=== PATIENT | male | born 1960 | race Caucasian/White ===

== ENCOUNTER 2020-05-03 19:58 | Inpatient (IN) ==
[2020-05-03 21:33] LABS: Hemoglobin 11.6 g/dL (12.9-16.9)
[2020-05-03 21:35] LABS: Basophils # 0.1 K/mcL (0.0-0.2); Basophils % 0.6 %; Eosinophils # 0.1 K/mcL (0.0-0.6); Eosinophils % 0.9 %; Hematocrit 40.8 % (37.5-50.1); Immature Granulocytes % 0.2 % (0-4); Immature Platelets 4.4 % (1.1-6.1); Lymphocytes % 22.3 %; Mean Corpuscular HGB Conc 28.4 g/dL (31.6-35.5); Mean Corpuscular Hemoglobin 22.8 pg (28.0-33.3); Mean Corpuscular Volume 80.3 fL (83.0-100.0); Mean Platelet Volume 11.2 fL (9.4-12.4); Monocytes # 1.2 K/mcL (0.0-1.3); Monocytes % 13.1 %; Neutrophils # 5.7 K/mcL (1.6-8.9); Platelet Count 120 K/mcL (140-400); Red Blood Count 5.08 M/mcL (4.19-5.50); Red Cell Distribution Width 21.4 % (11.5-14.5); Segmented Neutrophils % 62.9 %
[2020-05-03 21:39] LABS: Bacteria,Urine Few per hpf (None-Few); Bilirubin,Urine Negative (Negative); Blood,Urine Negative (Negative); Clarity,Urine Ex.Turbid (Clear); Color,Urine Dark-Yellow (Yellow); Glucose,Urine (UA) Normal (Normal); Hyaline Casts,Urine Few per lpf (None Seen); Ketones,Urine 10 mg/dL (Negative); Leukocyte Esterase,Urine Negative (Negative); Mucus,Urine Moderate per lpf (None-Few); Nitrite,Urine Negative (Negative); Protein,Urine 50 mg/dL (Neg-Trace); Specific Gravity,Urine > 1.030 (1.010-1.025)
[2020-05-03 21:41] LABS: INR 1.6; Prothrombin Time 17.8 Seconds (9.4-12.1)
[2020-05-03 21:50] LABS: Alanine Aminotransferase 26 Units/L (7-52); Albumin 2.5 g/dL (3.5-5.7); Albumin/Globulin Ratio 0.6 (1.1-2.2); Alkaline Phosphatase 218 Units/L (34-104); Aspartate Amino Transferase 73 Units/L (13-39); BUN/Creatinine Ratio 20 (6-26); Bilirubin,Direct 0.8 mg/dL (0.0-0.2); Bilirubin,Total 1.8 mg/dL (0.3-1.0); Blood Urea Nitrogen 13 mg/dL (6-20); Calcium 8.3 mg/dL (8.6-10.3); Carbon Dioxide 27 mEq/L (23-29); Chloride 99 mEq/L (98-107); Globulin 4.4 g/dL (2.4-3.5); Glucose 88 mg/dL (70-105); Osmolality,Calculated 274 (280-300); Potassium 4.3 mEq/L (3.5-5.1); Sodium 132 mEq/L (136-145); Total Protein 6.9 g/dL (6.4-8.9); eGFR For African Americans > 60 (> 60); eGFR For Non-African Americans > 60 (> 60)
[2020-05-03 21:56] LABS: Anisocytosis 1+ (Not Present)
[2020-05-03 21:57] LABS: Hypochromasia Present (Not Present); Platelet Estimate Decreased (Normal)
[2020-05-03] MEDS ORDERED: cefTRIAXone 1,000 MG in Water for inj. (sterile) 10 ML IVP ONE (22:11)
[2020-05-03] MEDS ORDERED: Naloxone 0.4 MG/ML INJ IVP PRN (22:52)
[2020-05-03] MEDS ORDERED: Ondansetron 4 MG/2 ML VIAL IVP PRN (22:52)
[2020-05-03] MEDS ORDERED: *HR* Dextrose 50 % in Water (Vial) 50 ML VIAL IVP PRN (23:33)
[2020-05-03] MEDS ORDERED: Dextrose Gel 15 GM/37.5 ML TUBE PO PRN ×2 (23:33)
[2020-05-03] MEDS ORDERED: D5% in Water 1,000 ML IVC PRN (23:33)
[2020-05-04] MEDS ORDERED: Morphine Sulfate Immed Rel 15 MG TABLET PO PRN (01:53)
[2020-05-04] MEDS ORDERED: methocarbamoL 750 MG TABLET PO ONE ×2 (03:02→05:15)
[2020-05-04] MEDS: Ipratropium/Albuterol Neb 3 ML IH SCH ×3 (03:49→16:14)
[2020-05-04 05:51] LABS: Basophils % 0.5 %; Eosinophils % 1.3 %; Hematocrit 38.4 % (37.5-50.1)
[2020-05-04 05:53] LABS: Basophils # 0.1 K/mcL (0.0-0.2); Eosinophils # 0.1 K/mcL (0.0-0.6); Immature Granulocytes % 0.4 % (0-4); Immature Platelets 3.9 % (1.1-6.1); Lymphocytes # 2.3 K/mcL (0.6-4.6); Lymphocytes % 22.8 %; Mean Corpuscular HGB Conc 28.6 g/dL (31.6-35.5); Mean Corpuscular Hemoglobin 22.8 pg (28.0-33.3); Mean Corpuscular Volume 79.7 fL (83.0-100.0); Mean Platelet Volume 10.7 fL (9.4-12.4); Monocytes # 1.3 K/mcL (0.0-1.3); Monocytes % 13.2 %; Neutrophils # 6.1 K/mcL (1.6-8.9); Platelet Count 121 K/mcL (140-400); Red Blood Count 4.82 M/mcL (4.19-5.50); Red Cell Distribution Width 21.3 % (11.5-14.5); Segmented Neutrophils % 61.8 %; White Blood Count 9.9 K/mcL (4.3-11.1)
[2020-05-04 06:32] LABS: Anisocytosis 1+ (Not Present); Hypochromasia Present (Not Present); Platelet Estimate Slight Decrease (Normal)
[2020-05-04 06:34] LABS: Alanine Aminotransferase 23 Units/L (7-52); Albumin 2.4 g/dL (3.5-5.7); Albumin/Globulin Ratio 0.6 (1.1-2.2); Alkaline Phosphatase 195 Units/L (34-104); Aspartate Amino Transferase 67 Units/L (13-39); BUN/Creatinine Ratio 22 (6-26); Bilirubin,Total 1.4 mg/dL (0.3-1.0); Blood Urea Nitrogen 14 mg/dL (6-20); Calcium 8.4 mg/dL (8.6-10.3); Carbon Dioxide 26 mEq/L (23-29); Chloride 100 mEq/L (98-107); Globulin 4.1 g/dL (2.4-3.5); Glucose 99 mg/dL (70-105); Osmolality,Calculated 273 (280-300); Phosphorous 2.7 mg/dL (2.7-4.5); Potassium 4.2 mEq/L (3.5-5.1); Sodium 131 mEq/L (136-145); Total Protein 6.5 g/dL (6.4-8.9); eGFR For African Americans > 60 (> 60); eGFR For Non-African Americans > 60 (> 60)
[2020-05-04] MEDS: Insulin LISPRO 300 UNITS/3 ML VIAL SQ SCH ×3 (08:50→17:52)
[2020-05-04] MEDS: Loratadine 10 MG TABLET PO SCH ×3 (08:52→22:18)
[2020-05-04] MEDS: cefTRIAXone 1,000 MG in Water for inj. (sterile) 10 ML IVP SCH (08:53)
[2020-05-04] MEDS: Albumin 25% 25gram/100mL 25 GM/100 ML IV.SOLN IVPB SCH ×4 (09:47→23:37)
[2020-05-04] MEDS ORDERED: Ipratropium/Albuterol Neb 3 ML IH PRN (10:48)
[2020-05-04 11:12] LABS: Source of Body Fluid Peritoneal
[2020-05-04 11:55] LABS: Estimated Average Glucose 117 mg/dl; Hemoglobin A1C 5.7 %
[2020-05-04] MEDS: Folic Acid 1 MG TABLET PO SCH (12:23)
[2020-05-04 14:48] LABS: Appearance of Body Fluid Clear (Clear); Volume of Body Fluid 60 mL
[2020-05-04 15:52] LABS: % Iron Saturation 8 % (20-55); Iron 21 mcg/dL (65-175); Transferrin 182 mg/dL (203-362)
[2020-05-04 16:07] LABS: Ferritin 27 ng/mL (20-250)
[2020-05-04 16:25] LABS: Folate > 22.3 ng/mL (3.0-16.0); Vitamin B12 > 1500 pg/mL (250-1100)
[2020-05-04] MEDS: Gabapentin 400 MG CAPSULE PO SCH ×2 (16:27→22:10)
[2020-05-04] MEDS ORDERED: Spironolactone 25 MG TABLET PO SCH (21:00)
[2020-05-04] MEDS: Budesonide/Formoterol 160/4.5 1 PUFF INH IH SCH (21:23)
[2020-05-04] MEDS: *HR* Rivaroxaban 15 MG TABLET PO SCH (22:10)
[2020-05-04] MEDS: Bumetanide 1 MG TABLET PO SCH (22:11)
[2020-05-04] MEDS: Fluticasone Propionate Nasal 50 MCG/SPRAY BOTTLE NS SCH (22:18)
[2020-05-05] MEDS: Morphine Sulfate Immed Rel 15 MG TABLET PO PRN ×2 (00:48→23:06)
[2020-05-05 02:40] LABS: Eosinophils % 1.6 %; Lymphocytes % 23.9 %
[2020-05-05 02:42] LABS: Basophils % 0.4 %; Eosinophils # 0.1 K/mcL (0.0-0.6); Hematocrit 32.1 % (37.5-50.1); Hemoglobin 9.1 g/dL (12.9-16.9); Immature Granulocytes % 0.3 % (0-4); Immature Platelets 3.4 % (1.1-6.1); Lymphocytes # 1.8 K/mcL (0.6-4.6); Mean Corpuscular HGB Conc 28.3 g/dL (31.6-35.5); Mean Corpuscular Hemoglobin 22.6 pg (28.0-33.3); Mean Corpuscular Volume 79.7 fL (83.0-100.0); Mean Platelet Volume 10.1 fL (9.4-12.4); Monocytes # 1.1 K/mcL (0.0-1.3); Monocytes % 13.7 %; Neutrophils # 4.6 K/mcL (1.6-8.9); Red Blood Count 4.03 M/mcL (4.19-5.50); Segmented Neutrophils % 60.1 %; White Blood Count 7.7 K/mcL (4.3-11.1)
[2020-05-05 02:46] LABS: Platelet Count 94 K/mcL (140-400)
[2020-05-05 02:50] LABS: Anisocytosis 1+ (Not Present); Hypochromasia Present (Not Present); Platelet Estimate Decreased (Normal)
[2020-05-05 02:54] LABS: BUN/Creatinine Ratio 21 (6-26); Blood Urea Nitrogen 13 mg/dL (6-20); Calcium 7.9 mg/dL (8.6-10.3); Carbon Dioxide 27 mEq/L (23-29); Chloride 98 mEq/L (98-107); Glucose 108 mg/dL (70-105); Magnesium 1.9 mg/dL (1.6-2.6); Osmolality,Calculated 269 (280-300); Phosphorous 2.1 mg/dL (2.7-4.5); Sodium 129 mEq/L (136-145); eGFR For African Americans > 60 (> 60); eGFR For Non-African Americans > 60 (> 60)
[2020-05-05] MEDS: Budesonide/Formoterol 160/4.5 1 PUFF INH IH SCH ×2 (07:29→22:36)
[2020-05-05] MEDS: Insulin LISPRO 300 UNITS/3 ML VIAL SQ SCH ×3 (08:22→15:32)
[2020-05-05] MEDS: cefTRIAXone 1,000 MG in Water for inj. (sterile) 10 ML IVP SCH (09:03)
[2020-05-05] MEDS: Folic Acid 1 MG TABLET PO SCH (09:03)
[2020-05-05] MEDS: Spironolactone 25 MG TABLET PO SCH (09:03)
[2020-05-05] MEDS: *HR* Rivaroxaban 15 MG TABLET PO SCH ×2 (09:03→19:57)
[2020-05-05] MEDS: Thiamine (B-1) 100 MG TABLET PO SCH (09:03)
[2020-05-05] MEDS: Bumetanide 1 MG TABLET PO SCH ×2 (09:04→19:57)
[2020-05-05] MEDS: Gabapentin 400 MG CAPSULE PO SCH ×3 (09:06→19:57)
[2020-05-05] MEDS: Albumin 25% 25gram/100mL 25 GM/100 ML IV.SOLN IVPB SCH ×4 (09:06→23:03)
[2020-05-05] MEDS: Fluticasone Propionate Nasal 50 MCG/SPRAY BOTTLE NS SCH ×2 (09:13→19:57)
[2020-05-05] MEDS ORDERED: Iron Sucrose Complex 400 MG in 0.9 % Sodium Chloride 250 ML IVPB ONE (12:20)
[2020-05-05] MEDS: Loratadine 10 MG TABLET PO SCH (19:57)
[2020-05-06 01:51] LABS: Basophils % 0.5 %; Eosinophils # 0.2 K/mcL (0.0-0.6); Eosinophils % 2.2 %; Hematocrit 33.7 % (37.5-50.1); Hemoglobin 9.8 g/dL (12.9-16.9); Immature Granulocytes % 0.3 % (0-4); Immature Platelets 5.2 % (1.1-6.1); Lymphocytes # 1.6 K/mcL (0.6-4.6); Mean Corpuscular HGB Conc 29.1 g/dL (31.6-35.5); Mean Corpuscular Hemoglobin 23.6 pg (28.0-33.3); Mean Corpuscular Volume 81.2 fL (83.0-100.0); Mean Platelet Volume 10.9 fL (9.4-12.4); Monocytes # 0.9 K/mcL (0.0-1.3); Neutrophils # 4.9 K/mcL (1.6-8.9); Platelet Count 103 K/mcL (140-400); Red Blood Count 4.15 M/mcL (4.19-5.50); Red Cell Distribution Width 20.7 % (11.5-14.5); White Blood Count 7.7 K/mcL (4.3-11.1)
[2020-05-06 02:05] LABS: BUN/Creatinine Ratio 22 (6-26); Blood Urea Nitrogen 14 mg/dL (6-20); Calcium 8.6 mg/dL (8.6-10.3); Carbon Dioxide 25 mEq/L (23-29); Chloride 96 mEq/L (98-107); Glucose 107 mg/dL (70-105); Magnesium 1.8 mg/dL (1.6-2.6); Osmolality,Calculated 267 (280-300); Phosphorous 1.8 mg/dL (2.7-4.5); Potassium 3.9 mEq/L (3.5-5.1); Sodium 128 mEq/L (136-145); eGFR For African Americans > 60 (> 60); eGFR For Non-African Americans > 60 (> 60)
[2020-05-06] MEDS: *HR* Rivaroxaban 15 MG TABLET PO SCH (07:49)
[2020-05-06] MEDS: Gabapentin 400 MG CAPSULE PO SCH ×3 (07:49→20:46)
[2020-05-06] MEDS: Thiamine (B-1) 100 MG TABLET PO SCH (07:49)
[2020-05-06] MEDS: Insulin LISPRO 300 UNITS/3 ML VIAL SQ SCH ×3 (07:49→16:45)
[2020-05-06] MEDS: Folic Acid 1 MG TABLET PO SCH (07:49)
[2020-05-06] MEDS: cefTRIAXone 1,000 MG in Water for inj. (sterile) 10 ML IVP SCH (07:51)
[2020-05-06] MEDS: Albumin 25% 25gram/100mL 25 GM/100 ML IV.SOLN IVPB SCH ×4 (07:52→22:24)
[2020-05-06] MEDS: Budesonide/Formoterol 160/4.5 1 PUFF INH IH SCH ×2 (07:57→20:14)
[2020-05-06] MEDS: Fluticasone Propionate Nasal 50 MCG/SPRAY BOTTLE NS SCH ×2 (08:01→20:46)
[2020-05-06] MEDS ORDERED: metOLazone 2.5 MG TABLET PO SCH (09:00)
[2020-05-06] MEDS: Spironolactone 25 MG TABLET PO SCH (09:41)
[2020-05-06] MEDS: Bumetanide 1 MG TABLET PO SCH (09:41)
[2020-05-06] MEDS ORDERED: Fosfomycin Tromethamine 3 GM Packet PO ONE (10:45)
[2020-05-06] MEDS ORDERED: Vancomycin 1,500 MG/265 ML IV.SOLN IVPB SCH (11:00)
[2020-05-06 13:22] LABS: Fluid Source for Albumin PERITONEAL FL
[2020-05-06] MEDS: Apixaban 5 MG TABLET PO SCH (20:46)
[2020-05-06] MEDS: Loratadine 10 MG TABLET PO SCH (20:46)
[2020-05-06] MEDS: Sennosides/Docusate Sodium TABLET PO SCH (21:27)
[2020-05-07 08:04] VITALS: BP 100/63
[2020-05-07] MEDS: Insulin LISPRO 300 UNITS/3 ML VIAL SQ SCH ×2 (08:10→11:34)
[2020-05-07] MEDS: Gabapentin 400 MG CAPSULE PO SCH (08:11)
[2020-05-07] MEDS: Thiamine (B-1) 100 MG TABLET PO SCH (08:12)
[2020-05-07] MEDS: Apixaban 5 MG TABLET PO SCH (08:13)
[2020-05-07] MEDS: Folic Acid 1 MG TABLET PO SCH (08:13)
[2020-05-07] MEDS: Sennosides/Docusate Sodium TABLET PO SCH (08:13)
[2020-05-07] MEDS: Fluticasone Propionate Nasal 50 MCG/SPRAY BOTTLE NS SCH (08:13)
[2020-05-07] MEDS: Budesonide/Formoterol 160/4.5 1 PUFF INH IH SCH (09:32)
[2020-05-07 12:13] LABS: Hematocrit 30.8 % (37.5-50.1); Mean Platelet Volume 10.5 fL (9.4-12.4)
[2020-05-07 12:15] LABS: Basophils % 0.3 %; Eosinophils # 0.1 K/mcL (0.0-0.6); Eosinophils % 1.7 %; Hemoglobin 8.8 g/dL (12.9-16.9); Immature Granulocytes % 0.2 % (0-4); Immature Platelets 6.7 % (1.1-6.1); Lymphocytes # 1.3 K/mcL (0.6-4.6); Lymphocytes % 21.3 %; Mean Corpuscular HGB Conc 28.6 g/dL (31.6-35.5); Mean Corpuscular Hemoglobin 22.8 pg (28.0-33.3); Mean Corpuscular Volume 79.8 fL (83.0-100.0); Monocytes # 0.7 K/mcL (0.0-1.3); Monocytes % 10.9 %; Platelet Count 101 K/mcL (140-400); Red Blood Count 3.86 M/mcL (4.19-5.50); Red Cell Distribution Width 20.8 % (11.5-14.5); Segmented Neutrophils % 65.6 %; White Blood Count 6.1 K/mcL (4.3-11.1)
[2020-05-07 12:19] LABS: BUN/Creatinine Ratio 18 (6-26); Blood Urea Nitrogen 11 mg/dL (6-20); Carbon Dioxide 31 mEq/L (23-29); Chloride 96 mEq/L (98-107); Glucose 161 mg/dL (70-105); Magnesium 1.9 mg/dL (1.6-2.6); Osmolality,Calculated 281 (280-300); Phosphorous 1.4 mg/dL (2.7-4.5); Potassium 3.5 mEq/L (3.5-5.1); Sodium 134 mEq/L (136-145); Uric Acid 4.6 mg/dL (2.3-7.6); eGFR For African Americans > 60 (> 60); eGFR For Non-African Americans > 60 (> 60)
[2020-05-07 12:34] LABS: Anisocytosis 1+ (Not Present); Hypochromasia Present (Not Present); Platelet Estimate Decreased (Normal)
== END 2020-05-07 15:41 | disposition home or self-care (01) | DRG 436 ==
LOC: EMEROOARM 19:58 → 3ANU 19:58 → SUATTDRO 22:41 → 3ANU 05-04 00:20 → SUATTDRO 05-05 12:01
PROVIDERS: ADMIT Family Medicine; ATTEND Internal Medicine